=== PATIENT | female | born 1940 | race Caucasian/White ===

== ENCOUNTER 2018-07-03 03:18 | Emergency (ER) | payer MEDICARE, MEDICAID ==
[2018-07-03 03:19] VITALS: BMI 28.3
[2018-07-03 03:38] VITALS: TEMP 97.9
--- NOTE | 2018-07-03 04:05 | C.PDOC ---
History Of Present Illness 78 year old female with PMHx of HTN presents to the ED c/o dizziness. Patient reports she went to lay down in bed at 20:00 and started feeling dizzy and lightheaded since then. Patient reports that 4 days ago her PMD increased her am lodipine from 5 to 10 mg. Patient also states she feels her heart is beating really fast. Patient reports feeling nervous as well. Patient denies fever, chills, CP, SOB, nausea, vomit, headache, visual changes, injury, fall, trauma, weakness, numbness. Time Seen by Provider: 07/03/18 03:34 Chief Complaint (Nursing): Dizziness/Lightheaded History Per: Patient History/Exam Limitations: no limitations Onset/Duration Of Symptoms: Hrs Current Symptoms Are (Timing): Still Present Activity At Onset Of Symptoms: Lying Associated Symptoms Preceding Syncopal Episode: Lightheadedness Seizure Or Post-ictal Symptoms: None Possible Causative Factor(s): New Medications Fall Associated With With Symptoms: No Severity: None Recent travel outside of the [place]: No Additional History Per: Patient Past Medical History Reviewed: Historical Data, Nursing Documentation, Vital Signs Vital Signs: Last Vital Signs Temp 97.9 F 07/03/18 03:37 Pulse 82 07/03/18 03:34 Resp 20 07/03/18 03:34 BP 172/72 H 07/03/18 03:34 Pulse Ox 96 07/03/18 03:34 - Medical History PMH: HTN, Hyperthyroidism Denies: Chronic Kidney Disease Surgical History: No Surg Hx - [facility] Procedures CLOSURE SKIN & SUBCUTANEOUS NEC (01/06/14) Family History: States: Unknown Family Hx - Social History Hx Alcohol Use: No Hx Substance Use: No - Immunization History Hx Tetanus Toxoid Vaccination: No Hx Influenza Vaccination: No Hx Pneumococcal Vaccination: No Review Of Systems Constitutional: Negative for: Fever, Chills Eyes: Negative for: Vision Change Cardiovascular: Positive for: Palpitations. Negative for: Chest Pain Respiratory: Negative for: Cough, Shortness of Breath Gastrointestinal: Negative for: Nausea, Vomiting, Abdominal Pain, Diarrhea Musculoskeletal: Negative for: Back Pain Skin: Negative for: Rash Neurological: Positive for: Dizziness. Negative for: Weakness, Numbness, Headache Physical Exam - Physical Exam Appears: Non-toxic, No Acute Distress Skin: Normal Color, Warm, Dry, No Rash Head: Atraumatic, Normacephalic Eye(s): bilateral: Normal Inspection, PERRL, EOMI, Other (no nystagmus) Nose: No Epistaxis Oral Mucosa: Moist Lips: No Swelling Throat: Normal, No Erythema, No Exudate Neck: Normal ROM, Trachea Midline, No Midline Cervical Tenderness, Supple Chest: Symmetrical Cardiovascular: Rhythm Regular Respiratory: Normal Breath Sounds, No Rales, No Rhonchi, No Wheezing Gastrointestinal/Abdominal: Soft, No Tenderness, No Guarding, No Rebound Extremity: Normal ROM, No Tenderness, No Swelling Extremity: Bilateral: Atraumatic Pulses: Left Carotid: Normal, Right Carotid: Normal, Left Radial: Normal, Right Radial: Normal Neurological/Psych: Oriented x3, Normal Speech, Normal Cognition, Normal Cranial Nerves, Normal Motor, Normal Sensation, No Expressive Aphasia, No Dysarthria, No Romberg (negative) Gait: Steady ED Course And Treatment - Laboratory Results Result Diagrams: 07/03/18 04:22 07/03/18 04:22 ECG: Interpreted By Me, Viewed By Me ECG Rhythm: Sinus Rhythm Rate From EC (BPM) O2 Sat by Pulse Oximetry: 96 (ON RA) Pulse Ox Interpretation: Normal - CT Scan/US CT head Other Rad Studies (CT/US): Read By Radiologist, Radiology Report Reviewed CT/US Interpretation: CT scan of the head. CLINICAL HISTORY: Dizziness. TECHNIQUE: Multiple axial CT images were obtained through the brain without IV contrast material. COMMENTS: There is normal configuration of sella turcica. There are no intra or extra-axial collections. There is no mass effect or midline shift. There is no evidence of hematoma formation. No hydrocephalus is present. The ventricles are symmetrical. No abnormal calcifications are present. There is diffuse age-appropriate cerebellar and cerebral atrophy with proportionally dilated ventricles and cortical sulci. There are bilateral periventricular and subcortical white matter hypolucencies compatible with mild chronic microvascular disease. Otherwise, no significant focal abnormalities are seen either in the posterior fossa or supratentorial compartment. IMPRESSION: 1. Age-appropriate cerebellar and cerebral atrophy. 2. Mild chr onic microvascular disease. 3. No evidence of acute intracranial pathology. Thank you for your kind referral of this patient. . Electronically signed on Jul 03, 2018 5:11:39 AM EST by: Jose M Hooper M.D., Certified by ABR, MSK, Neuroradiology Medical Decision Making Medical Decision Making: Plan: * CT head * Labs * UA 06:33 - Patient states she is feeling better . Vital signs remained stable, no neurological changes or deficits. Patient with PEERL, EOMI intact, no nystagmus, negative Romberg. Patient has unassisted steady gait. Disposition Counseled Patient/Family Regarding: Studies Performed, Diagnosis, Need For Followup - Disposition Disposition: HOME/ ROUTINE Disposition Time: 06:45 Condition: IMPROVED Additional Instructions: LINDA BERMAN, thank you for letting us take care of you today. Your provider was Morena Smith MD and you were treated for DIZZINESS. The emergency medical care you received today was directed at your acute symptoms. If you were prescribed any medication, please fill it and take as directed. It may take several days for your symptoms to resolve. Return to the Emergency Department if your symptoms worsen, do not improve, or if you have any other problems. Please contact your doctor or call one of the physicians/clinics you have been referred to that are listed on the Patient Visit Information form that is included in your discharge packet. Bring any paperwork you were given at discharge with you along with any medications you are taking to your follow up visit. Our treatment cannot replace ongoing medical care by a primary care provider outside of the emergency department. Thank you for allowing the [facility] team to be part of your care today. If you had an X-Ray or CT scan: A Radiologist will review the ED reading if any change in treatment is needed we will contact you. Instructions: Dizziness, Nonvertigo, (DC) Forms: Car reviews (Nicaraguan), General Discharge Instructions Print Language: AZERI - Clinical Impression Clinical Impression: Dizziness - PA / FOOD SERVICE SPECIALIST / Resident Statement MD/DO has reviewed & agrees with the documentation as recorded. - Scribe Statement The provider has reviewed the documentation as recorded by the Scribe Zuhair Perry All medical record entries made by the Scribe were at my direction and personally dictated by me. I have reviewed the chart and agree that the record accurately reflects my personal performance of the history, physical exam, medical decision making, and the department course for this patient. I have also personally directed, reviewed, and agree with the discharge instructions and disposition.
[2018-07-03 04:25] LABS: BASO # 0.1 K/uL (0.0-0.2); EOS # 0.3 K/uL (0.0-0.7); HEMOGLOBIN 13.7 g/dL (11.0-16.0); LYMPH # 1.4 K/uL (1.0-4.3); LYMPH % 26.2 % (20.0-40.0); MEAN CELL VOLUME 85.8 fL (81.0-99.0); MEAN CORPUSCULAR HEMOGLOBIN 28.3 pg (27.0-31.0); MEAN CORPUSCULAR HGB CONC 32.9 g/dL (33.0-37.0); MEAN PLATELET VOLUME 9.1 fL (7.2-11.7); MONO # 0.4 K/uL (0.0-0.8); MONO % 7.8 % (0.0-10.0); NEUT # 3.3 K/uL (1.8-7.0); NRBC % 0.1 % (0.0-2.0); RBC 4.87 Mil/uL (3.80-5.20); RED CELL DISTRIBUTION WIDTH 12.5 % (11.5-14.5); WHITE BLOOD COUNT 5.5 K/uL (4.8-10.8)
[2018-07-03 04:30] LABS: INR 1.1; PROTHROMBIN TIME 11.8 SECONDS (9.7-12.2)
[2018-07-03 04:38] LABS: ALB/GLOB RATIO 1.2 (1.0-2.1); ALBUMIN 4.3 g/dL (3.5-5.0); ALT/SGPT 36 U/L (9-52); AST/SGOT 29 U/L (14-36); BLOOD UREA NITROGEN 20 mg/dL (7-17); CALCIUM 8.8 mg/dl (8.6-10.4); GFR NON-AFRICAN AMERICAN > 60
[2018-07-03 06:56] VITALS: BP 144/62; PULSE 65; RESP 16; O2SAT 100
--- NOTE | 2018-07-03 09:23 | CT ---
Date of service: 07/03/2018 PROCEDURE: CT HEAD WITHOUT CONTRAST. HISTORY: Dizziness. Headache. Evaluate for hemorrhage. COMPARISON: None available. TECHNIQUE: Axial computed tomography images were obtained through the head/brain without intravenous contrast. Radiation dose: Total exam DLP = 1012.31 mGy-cm. This CT exam was performed using one or more of the following dose reduction techniques: Automated exposure control, adjustment of the mA and/or kV according to patient size, and/or use of iterative reconstruction technique. FINDINGS: HEMORRHAGE: No intracranial hemorrhage. BRAIN: No mass effect or edema. Scattered focal lucencies in the subcortical and periventricular white matter suggestive for chronic microvascular ischemic change. Diffuse prominence of the ventricles and sulci suggestive for atrophy. Punctate hypodensity in the left basal ganglia likely represents a small lacunar infarct. VENTRICLES: Unremarkable. No hydrocephalus. CALVARIUM: Unremarkable. PARANASAL SINUSES: Mild mucosal thickening of the ethmoid air cells and sphenoid sinus. MASTOID AIR CELLS: Unremarkable as visualized. No inflammatory changes. OTHER FINDINGS: None. IMPRESSION: No acute intracranial abnormality. Chronic microvascular ischemic change. Atrophy. Punctate hypodensity in the left basal ganglia likely represents a small lacunar infarct. Mild sinus mucosal disease. If symptoms persists, consider correlation with MRI. A preliminary report was generated at 5:11 a.m. on 07/03/[address] Jose M Hooper from [facility].
--- NOTE | 2018-07-03 10:25 | RAD ---
Date of service: 07/03/2018 HISTORY: dizzy COMPARISON: No prior. FINDINGS: LUNGS: No active pulmonary disease. PLEURA: No significant pleural effusion identified, no pneumothorax apparent. CARDIOVASCULAR: No aortic atherosclerotic calcification present. Mild cardiomegaly no pulmonary vascular congestion. OSSEOUS STRUCTURES: No significant abnormalities. VISUALIZED UPPER ABDOMEN: Normal. OTHER FINDINGS: None. IMPRESSION: No active disease.
--- NOTE | 2018-07-03 12:50 | CARD ---
APPROVED REPORT Date of service: 07/03/2018 EKG Measurement Heart [id number] <Conclusion> Normal sinus rhythm Normal ECG
== END 2018-07-03 06:56 | disposition home or self-care (01) ==
LOC: C.ER 03:18
DX: R42 Dizziness and giddiness (principal)